=== PATIENT | male | born 1955 | race Caucasian/White ===

== ENCOUNTER → 2019-06-07 | Outpatient (CLI) | payer OTHER ==
--- NOTE | 2019-06-07 10:26 | MR ---
EXAMINATION TYPE: MR shoulder RT wo con DATE OF EXAM: 06/07/2019 COMPARISON: Plain film dated 05/26/2019 HISTORY: Right shoulder pain TECHNIQUE: Multiplanar, multisequence imaging of the right shoulder is performed without contrast. FINDINGS: Rotator Cuff: At the level of the insertion of the rotator cuff, there is partial undersurface tear p resent, increased signal is present on coronal image #15, sagittal image #23 near the insertion of th e infraspinatus tendon. Additionally within the substance of the rotator cuff there is abnormal incre ased signal, coronal image #12, sagittal image #20 suggesting tendinosis and possible intrasubstance, undersurface tear, decreased tendon thickness. Fluid signal is present in the subacromial subdeltoid bursa. Acromioclavicular Joint: Arthropathy and acromion clavicular joint causes mass effect on the musculot endinous junction of supraspinatus. Distal acromial spur is noted. Glenohumeral Joint: Intact Labrum: There is some intrasubstance signal present along the superior labrum, there may be degenerat regina change, possible SLAP lesion, coronal image 14, 16 and 17 Biceps Tendon: The long head of biceps is in normal location within bicipital groove somewhat perched centrally, there is fluid signal along the long head of biceps. Bone marrow signal: Pseudocysts are present within the humeral head. Other: Inferior glenohumeral ligament appears somewhat irregular, abnormal increased signal is noted, suspect some thickening. IMPRESSION: Undersurface tears rotator cuff, possible SLAP lesion, correlate to exclude frozen shoulder.
== END | disposition home or self-care (01) ==
LOC: RADMRIMAIN 08:23
PROVIDERS: ATTEND Orthopaedic Surgery
DX: M75.101 Unspecified rotator cuff tear or rupture of right shoulder, not specified as traumatic (principal)

== ENCOUNTER → 2019-06-24 | Outpatient (CLI) | payer OTHER ==
[2019-06-24 09:39] LABS: Potassium 4.6 mmol/L (3.5-5.1)
[2019-06-24 09:55] LABS: Basophils # (A) 0.1 k/uL (0-0.2); Basophils % (A) 1 %; Eosinophils # (A) 0.3 k/uL (0-0.7); Eosinophils % (A) 5 %; HGB 14.9 gm/dL (13.0-17.5); Lymphocytes # (A) 1.7 k/uL (1.0-4.8); Lymphocytes % (A) 31 %; MCH 31.1 pg (25.0-35.0); MCV 91.6 fL (80.0-100.0); Mean Platelet Volume 8.2; Monocytes # (A) 0.4 k/uL (0-1.0); Monocytes % (A) 7 %; Neutrophils # (A) 2.9 k/uL (1.3-7.7); Neutrophils % (A) 54 %; Platelet Count 306 k/uL (150-450); RDW 13.4 % (11.5-15.5); WBC 5.4 k/uL (3.8-10.6)
== END | disposition home or self-care (01) ==
LOC: LABPAT 08:50
PROVIDERS: ATTEND Orthopaedic Surgery
DX: Z01.812 Encounter for preprocedural laboratory examination (principal); Z01.818 Encounter for other preprocedural examination; M75.41 Impingement syndrome of right shoulder
CPT/HCPCS: 36415; 80051; 85025

== ENCOUNTER → 2019-07-17 | Day surgery (SDC) | payer OTHER ==
[2019-07-12 15:28] VITALS: BMI 28.7
--- NOTE | 2019-07-16 15:56 | HP ---
HISTORY AND PHYSICAL REASON FOR ADMISSION: Surgery 07/17/2019. HISTORY OF PRESENT ILLNESS: Arnel Castillo is a 63-year-old patient seen with progressive right shoulder pain. We discussed options for treatment. He elected to proceed with arthroscopy. Consent was obtained. PAST MEDICAL HISTORY: Atrial fibrillation. PAST SURGICAL HISTORY: None. DAILY MEDICATIONS: None. ALLERGIES: None. SOCIAL HISTORY: Denies tobacco use. PHYSICAL EXAMINATION: Evaluation of the right shoulder, flexion 110, abduction 70, external rotation 30 with pain and weakness. Tenderness along the anterior lateral acromion rotator cuff insertion site. Impingement sign is positive at 90 degrees. Drop-arm sign is positive. His distal neurovascular exam is intact. RADIOGRAPHS: Radiographs of the right shoulder revealed a type 2 anterior acromion acromioclavicular joint osteoarthritis and cystic changes of the greater tuberosity. An MRI of the right shoulder revealed rotator cuff tendon tear and labral tear. IMPRESSION: 1. Right shoulder impingement with rotator cuff and labral tear. 2. Right shoulder acromioclavicular osteoarthritis. 3. Adhesive capsulitis. 4. Atrial fibrillation. PLAN: Right shoulder arthroscopy with subacromial decompression, arthroscopic rotator cuff repair, Tash procedure, lysis of adhesions and debridement. Surgery scheduled for 07/17/2019. MMODL / IJN: [id number] /
[~2019-07-17] MED LIST: DEXAMETHASONE SOD PHOSPHATE 10 MG/ML 1 ML VIAL IV ONE; HYDROcodone/APAP 7.5-325MG 1 EACH TAB PO ONE; HYDROmorphone 0.5 MG/0.5 ML SYRINGE IVP PRN; LACTATED RINGERS 1,000 ML IV ONE; LACTATED RINGERS 1,000 ML IV SCH; LIDOCAINE 1% (10MG/ML) FOR IV START INTRADERMA ONE; LIDOCAINE 1% INJ 10MG/ML (20 ML MDV) ONE; MIDAZOLAM 2 MG/2 ML VIAL IV PRN; MIDAZOLAM 2 MG/2 ML VIAL ONE; ONDANSETRON 4 MG/2 ML VIAL IVP ONE; PROPOFOL 10 MG/ML 20 ML VIAL IV ONE; ROCURONIUM BROMIDE 10 MG/ML 5 ML VIAL IV ONE; ROPIVACAINE 0.2%-NS ON-Q PUMP 1,090 MG, EMPTY PAIN BALL 1 EACH MISCELLANE PRN
--- NOTE | 2019-07-17 12:44 | P.ANPRN ---
Procedure Note - Anesthesia - Nerve Block Performed Right Interscalene Infusion Time Out Performed: Yes Date of Procedure: 07/17/19 Procedure Start Time: 11:30 Procedure Stop Time: :42 Location of Patient: PreOp Indication: Acute Post-Operative Pain, Requested by Surgeon Sedation Type: Sedate with meaningful contact maintained Preparation: Sterile Prep, Sterile Dressing Position: Sitting Catheter: Indwelling Needle Types: Optisense Needle Gauge: 18 Ultrasound used to visualize needle placement: Yes Ultrasound used to observe medication spread: Yes Injectate: 0.5% Ropivacaine (see comment for volume) Blood Aspirated: No Pain Paresthesia on Injection Noted: No Resistance on Injection: Normal Image Stored and Saved: Yes Events: Uneventful and Well Tolerated
--- NOTE | 2019-07-17 14:43 | P.OP ---
Date of Procedure: 07/17/19 Preoperative Diagnosis: Right shoulder impingement Postoperative Diagnosis: 1. Right shoulder rotator cuff tear 2. Right shoulder impingement 3. Right shoulder acromioclavicular joint osteoarthritis 4. Right shoulder partial long head biceps tendon tear 5. Right shoulder superficial labral tear 6. 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 Right shoulder arthroscopic rotator cuff repair 2. Right shoulder arthroscopic subacromial decompression 3. Right shoulder arthroscopic Tash procedure 4. Right shoulder arthroscopic biceps tenotomy 5. Right shoulder arthroscopic labral tear 6. Right shoulder arthroscopic chondroplasty humeral head Implants: 1Arthrex 4.75 swivel lock anchor Anesthesia: GETA, regional (Interscalene block) Surgeon: Carson Dawson Print Color Operator #1: Kenny Brasher Estimated Blood Loss (ml): 10 Pathology: none sent Condition: stable Disposition: PACU Indications for Procedure: 63-year-old patient seen with progressive right shoulder pain. After treatment options were discussed, he elected to proceed with arthroscopy. Operative Findings: see description of procedure Description of Procedure: Patient underwent an interscalene block by department of anesthesia for postoperative pain management. The patient was then taken to the operative suite. The patient underwent a general anesthetic by the department of anesthesia. The patient was placed into a lateral position and secured. There was appropriate padding of the bony prominence. Right shoulder was then prepped and draped in normal sterile orthopedic fashion. We placed the extremity in 10 pounds of longitudinal traction. A posterior incision was now made for a posterior working portal site. The trocar and cannula were inserted into the glenohumeral joint. Arthroscopy was initiated. Spinal needle was now inserted anteriorly, to ascertain the anterior working portal site. An incision was now made in that area, a trocar was inserted followed by a probe. There was superficial tearing of the superior and anterior labrum. There were grade 3/4 chondromalacia changes of the central portion humeral head with peripheral o steochondral flap tears present. There was hyperemia partial tearing long head biceps tendon. There was an obvious rotator cuff tear along the posterior aspect of the supraspinatus visualized from glenohumeral joint. I performed an arthroscopic biceps tenotomy. I performed a chondroplasty of the humeral head. I debrided the superficial labral tears down to stable osteochondral tissue. The residual osteochondral tissue was found to be stable. We again noted a central area of the humeral head with grade 3/4 chondromalacia measuring about 2 cm in diameter. The residual labrum was stable. Instruments now removed from glenohumeral joint. Utilizing the posterior working portal site, the trocar and cannula were inserted into the subacromial space. Arthroscopy initiated. I made an incision 2 fingerbreadths lateral to the acromion. I introduced my trocar followed by my ArthroCare ablator. I now began ablating thick subacromial bursal tissue, which exposed the undersurface of the anterior acromion. There was diminished subacromial space. There was a very prominent anterior acromion. A motorized bur was introduced and a subacromial decompression was performed. I also excised some osteophytes off the inferior aspect of the distal clavicle. The AC joint was visualized and noted to be fairly arthritic. The motorized bur was introduced in the anterior portal site and a Tash procedure was performed without difficulty, decompressing the AC joint nicely. I turned my attention to the rotator cuff. There was a 1.5 cm tear posterior aspect distal supraspinatus. I debrided the margins getting down to stable tendon tissue. I abraded the footprint with a motorized bur. I passed 3 everted mattress suture through good bites of rotator cuff tendon. I punched the hole in the area the footprint for insertion of anchor. All 6 suture limbs were passed through a 4.75 Arthrex swivel lock anchor. The eyelet of the anchor was now placed into pre-punch hole. I held it in position while the David SWAN tensioned all the sutures and then deployed the anchor. There was good purchase of the anchor. We had good compression of the tendon along the entire footprint. All residual suture limbs were clipped. I injected 1 mL Renyte intra-articular. Instruments now removed from the portal sites. All portal sites were approximated with nylon suture. Sterile dressings were applied followed by a shoulder immobilizer. Kenny SWAN assisted in this complex case. The patient was awakened, transferred to a bed, and taken to recovery in stable condition.
[2019-07-17 14:52] VITALS: TEMP 96.8
[2019-07-17 16:36] VITALS: BP 127/89; PULSE 69; RESP 18
== END | disposition home or self-care (01) ==
LOC: OR 10:41
PROVIDERS: ATTEND Orthopaedic Surgery
DX: M75.101 Unspecified rotator cuff tear or rupture of right shoulder, not specified as traumatic (principal); M19.011 Primary osteoarthritis, right shoulder; M75.41 Impingement syndrome of right shoulder; M75.01 Adhesive capsulitis of right shoulder; M24.111 Other articular cartilage disorders, right shoulder; M94.211 Chondromalacia, right shoulder; M75.21 Bicipital tendinitis, right shoulder; I48.91 Unspecified atrial fibrillation
CPT/HCPCS: 64415; 76942; 29824; 29826; 29827; C1713; Q4212; J2250; J1100; J0690; J2405; J2001; J2704; J1170; J2795

== ENCOUNTER → 2019-11-29 | Outpatient (CLI) | payer OTHER ==
[2019-11-29 12:52] LABS: HCT 44.9 % (39.0-53.0); HGB 15.4 gm/dL (13.0-17.5); MCH 31.4 pg (25.0-35.0); MCHC 34.3 g/dL (31.0-37.0); MCV 91.5 fL (80.0-100.0); Mean Platelet Volume 8.1; Platelet Count 293 k/uL (150-450); RDW 13.6 % (11.5-15.5); WBC 5.3 k/uL (3.8-10.6)
[2019-11-29 18:43] LABS: African American GFR (CKD) 80.6 (60.0-200.0); Albumin 4.5 g/dL (3.80-4.90); Albumin/Globulin Ratio 2.05 (1.60-3.17); Anion Gap 7.4 mmol/L (4.00-12.00); BUN/Creat Ratio 16.36 Ratio (12.00-20.00); Calcium 9.4 mg/dL (8.7-10.3); Carbon Dioxide 25.6 mmol/L (21.6-31.8); Globulin 2.2 g/dL (1.6-3.3); Non-African American GFR(CKD) 69.6 (60.0-200.0); Potassium 4.6 mmol/L (3.5-5.5); Total Bilirubin 0.6 mg/dL (0.2-1.2); Total Protein 6.7 g/dL (6.2-8.2)
== END | disposition home or self-care (01) ==
LOC: LABWHC1 11:37
PROVIDERS: ATTEND Physician Assistant
DX: G72.9 Myopathy, unspecified (principal)
CPT/HCPCS: 36415; 80053; 82085; 82550; 84439; 84443; 84481; 85027

== ENCOUNTER → 2020-04-02 | Outpatient (CLI) | payer OTHER ==
[~2020-04-02] MED LIST changes: -DEXAMETHASONE SOD PHOSPHATE 10 MG/ML 1 ML VIAL IV ONE; -HYDROcodone/APAP 7.5-325MG 1 EACH TAB PO ONE; -HYDROmorphone 0.5 MG/0.5 ML SYRINGE IVP PRN; +IODINE/POTASS IOD (LUGOLS) BOTTLE TOPICAL ONE; -LACTATED RINGERS 1,000 ML IV ONE; -LACTATED RINGERS 1,000 ML IV SCH; -LIDOCAINE 1% (10MG/ML) FOR IV START INTRADERMA ONE; -LIDOCAINE 1% INJ 10MG/ML (20 ML MDV) ONE; -MIDAZOLAM 2 MG/2 ML VIAL IV PRN; -MIDAZOLAM 2 MG/2 ML VIAL ONE; -ONDANSETRON 4 MG/2 ML VIAL IVP ONE; -PROPOFOL 10 MG/ML 20 ML VIAL IV ONE; -ROCURONIUM BROMIDE 10 MG/ML 5 ML VIAL IV ONE; -ROPIVACAINE 0.2%-NS ON-Q PUMP 1,090 MG, EMPTY PAIN BALL 1 EACH MISCELLANE PRN
--- NOTE | 2020-04-05 09:52 | NM ---
EXAMINATION TYPE: NM DatScan Brain SPECT DATE OF EXAM: 04/02/2020 COMPARISON: NONE HISTORY: Tremor. TECHNIQUE: 10 drops of Lugol's solution was administered 1 hour prior to injection as a thyroid bloc tonya agent. After the administration of 4.71 mCi I-123 Ioflupane DaTscan. Images obtained 3 hours p ost injection. SPECT images of the brain were acquired with axial and coronal reconstructions. FINDINGS: The DaTSCAN demonstrates normal uptake of tracer throughout the striata. Consequently there is no evidence of loss of the pre-synaptic dopaminergic terminals on this investigation. IMPRESSION: This normal appearance is against a diagnosis of idiopathic Parkinson?s disease (PD) or a Parkinsonian syndrome (PS) and is seen in healthy individuals and also patients with essential tremor (ET), drug induced parkinsonism, and vascular pseudo-parkinsonism.
== END | disposition home or self-care (01) ==
LOC: RADNMMAIN 11:01
PROVIDERS: ATTEND Psychiatry & Neurology Neurology
DX: G25.0 Essential tremor (principal)
CPT/HCPCS: 78803; A9584

== ENCOUNTER 2020-09-12 12:52 | Inpatient (IN) | payer OTHER, MEDICARE ==
[2020-09-12] MEDS ORDERED: HEPARIN SODIUM,PORCINE 10,000 UNIT/ML 1 ML VIAL IV ONE (13:44)
--- NOTE | 2020-09-12 14:00 | ED ---
General Adult HPI - General Chief complaint: Recheck/Abnormal Lab/Rx Stated complaint: L Lung Blood Clot Time Seen by Provider: 09/12/20 12:55 Source: patient, RN notes reviewed, old records reviewed Mode of arrival: ambulatory Limitations: no limitations - History of Present Illness Initial comments: This is a 64-year-old male who presents to the emergency room because he has pulmonary embolisms. Patient states he was down at never significantly getting a CAT scan of his aorta and his extremities and he was called to state that when they saw the base of his lungs he had clots bilaterally in the basal aspect of his lungs. Patient denies any shortness of breath chest pain or palpitations. Patient denies any fever chills. Patient states he has not had any symptoms of fatigue or weakness other than the chronic weakness he's had on his right side which is why he was at [facility] to begin with. Patient denies any headache patient denies lightheadedness or dizziness. Patient denies any previous blood clots. - Related Data Home Medications Medication Instructions Recorded Confirmed Loratadine [Claritin] 10 mg PO DAILY 09/12/20 09/12/20 Multivitamins, Thera Liquid 5 ml PO DAILY 09/12/20 09/12/20 [Theragran Liquid (formulary)] Allergies Allergy/AdvReac Type Severity Reaction Status Date / Time mold Allergy Dyspnea Verified 09/12/20 15:12 DUST Allergy Dyspnea Uncoded 09/12/20 15:12 Review of Systems ROS Statement: Those systems with pertinent positive or pertinent negative responses have been documented in the HPI. ROS Other: All systems not noted in ROS Statement are negative. Past Medical History Past Medical History: Atrial Fibrillation Additional Past Medical History / Comment(s): HX A-FIB W/ ABLATION (APPROX 10 YRS AGO), SEES CHIROPRACTOR FOR BACK .,. RIGHT SHOULDER PAIN. History of Any Multi-Drug Resistant Organisms: None Reported Past Surgical History: Cardiac Ablation Past Anesthesia/Blood Transfusion Reactions: No Reported Reaction Past Psychological History: No Psychological Hx Reported Smoking Status: Never smoker Past Alcohol Use History: Occasional Past Drug Use History: None Reported - Past Family History Father Family Medical History: Cancer Additional Family Medical History / Comment(s): CANCER LYMPH NODES. General Exam - General Exam Comments Initial Comments: GENERAL: Patient is well-developed and well-nourished. Patient is nontoxic and well-hyd rated and is in no acute distress. ENT: Neck is soft and supple. No significant lymphadenopathy is noted. Oropharynx is clear. Moist mucous membranes. Neck has full range of motion without elicit ing any pain. EYES: The sclera were anicteric and conjunctiva were pink and moist. Extraocular m ovements were intact and pupils were equal round and reactive to light. Eyelids were unremarkable. PULMONARY: Unlabored respirations. Good breath sounds bilaterally. No audible rales rhonchi or wheezing was noted. CARDIOVASCULAR: There is a regular rate and rhythm without any murmurs gallops or rubs. ABDOMEN: Soft and nontender with normal bowel sounds. SKIN: Skin is clear with no lesions or rashes and otherwise unremarkable. NEUROLOGIC: Patient is alert and oriented x3. Cranial nerves II through XII are grossly intact. Motor and sensory are also intact. Normal speech, volume and content. Symmetrical smile. MUSCULOSKELETAL: Normal extremities with adequate strength and full range of motion. No lower extremity swelling or edema. No calf tenderness. LYMPHATICS: No significant lymphadenopathy is noted PSYCHIATRIC: Normal psychiatric evaluation. Limitations: no limitations Course Vital Signs 09/12/20 12:55 Temperature 97.5 F L Pulse Rate 69 Respiratory 18 Rate Blood Pressure 123/84 O2 Sat by Pulse 98 Oximetry Medical Decision Making - Medical Decision Making EKG shows normal sinus rhythm at 63 bpm NJ interval is on a 58 QRSs 162/426 QTC is 435 per patient's EKG shows no ST segment elevation or depression. High-dose heparin was used to treat the patient's pulmonary process. I admitted the patient. I spoke with Dr. Woodard he agreed to admit the patient admitted the patient wrote admitting orders - Lab Data Result diagrams: 09/12/20 13:49 09/12/20 13:49 Lab Results 09/12/20 09/12/20 09/12/20 Range/Units 13:49 13:49 13:49 WBC 5.8 (3.8-10.6) k/uL RBC 5.14 (4.30-5.90) m/uL Hgb 15.6 (13.0-17.5) gm/dL Hct 46.8 (39.0-53.0) % MCV 91.0 (80.0-100.0) fL MCH 30.4 (25.0-35.0) pg MCHC 33.4 (31.0-37.0) g/dL RDW 13.7 (11.5-15.5) % Plt Count 276 (150-450) k/uL MPV 8.1 Neutrophils % 58 % Lymphocytes % 30 % Monocytes % 7 % Eosinophils % 3 % Basophils % 1 % Neutrophils # 3.4 (1.3-7.7) k/uL Lymphocytes # 1.8 (1.0-4.8) k/uL Monocytes # 0.4 (0-1.0) k/uL Eosinophils # 0.2 (0-0.7) k/uL Basophils # 0.1 (0-0.2) k/uL PT 9.7 (9.0-12.0) sec INR 0.9 (<1.2) APTT 22.7 (22.0-30.0) sec D-Dimer 0.99 H (<0.60) mg/L FEU Sodium 139 (137-145) mmol/L Potassium 4.4 (3.5-5.1) mmol/L Chloride 104 (98-107) mmol/L Carbon Dioxide 27 (22-30) mmol/L Anion Gap 8 mmol/L BUN 17 (9-20) mg/dL Creatinine 1.14 (0.66-1.25) mg/dL Est GFR (CKD-EPI)AfAm 78 (>60 ml/min/1.73 sqM) Est GFR (CKD-EPI)NonAf 67 (>60 ml/min/1.73 sqM) Glucose 89 (74-99) mg/dL Calcium 9.7 (8.4-10.2) mg/dL Magnesium 2.4 H (1.6-2.3) mg/dL Total Bilirubin 0.6 (0.2-1.3) mg/dL AST 31 (17-59) U/L ALT 18 (4-49) U/L Alkaline Phosphatase 66 (38-126) U/L Total Protein 7.4 (6.3-8.2) g/dL Albumin 4.6 (3.5-5.0) g/dL Coronavirus (PCR) (Not Detectd) 09/12/20 Range/Units 14:38 WBC (3.8-10.6) k/uL RBC (4.30-5.90) m/uL Hgb (13.0-17.5) gm/dL Hct (39.0-53.0) % MCV (80.0-100.0) fL MCH (25.0-35.0) pg MCHC (31.0-37.0) g/dL RDW (11.5-15.5) % Plt Count (150-450) k/uL MPV Neutrophils % % Lymphocytes % % Monocytes % % Eosinophils % % Basophils % % Neutrophils # (1.3-7.7) k/uL Lymphocytes # (1.0-4.8) k/uL Monocytes # (0-1.0) k/uL Eosinophils # (0-0.7) k/uL Basophils # (0-0.2) k/uL PT (9.0-12.0) sec INR (<1.2) APTT (22.0-30.0) sec D-Dimer (<0.60) mg/L FEU Sodium (137-145) mmol/L Potassium (3.5-5.1) mmol/L Chloride (98-107) mmol/L Carbon Dioxide (22-30) mmol/L Anion Gap mmol/L BUN (9-20) mg/dL Creatinine (0.66-1.25) mg/dL Est GFR (CKD-EPI)AfAm (>60 ml/min/1.73 sqM) Est GFR (CKD-EPI)NonAf (>60 ml/min/1.73 sqM) Glucose (74-99) mg/dL Calcium (8.4-10.2) mg/dL Magnesium (1.6-2.3) mg/dL Total Bilirubin (0.2-1.3) mg/dL AST (17-59) U/L ALT (4-49) U/L Alkaline Phosphatase (38-126) U/L Total Protein (6.3-8.2) g/dL Albumin (3.5-5.0) g/dL Coronavirus (PCR) Not Detected (Not Detectd) Critical Care Time Critical Care Time: Yes Total Critical Care Time: 35 Disposition Clinical Impression: Pulmonary embolism Disposition: ADMITTED IP TO THIS [facility] Referrals: Hunter Richmond, PAC [Primary Care Provider] - 1-2 days Time of Disposition: 16:06
[2020-09-12 14:11] LABS: Basophils % (A) 1 %; Eosinophils % (A) 3 %; HCT 46.8 % (39.0-53.0); HGB 15.6 gm/dL (13.0-17.5); Lymphocytes # (A) 1.8 k/uL (1.0-4.8); Lymphocytes % (A) 30 %; MCH 30.4 pg (25.0-35.0); MCHC 33.4 g/dL (31.0-37.0); Mean Platelet Volume 8.1; Monocytes % (A) 7 %; Neutrophils # (A) 3.4 k/uL (1.3-7.7); Neutrophils % (A) 58 %; Platelet Count 276 k/uL (150-450); RBC 5.14 m/uL (4.30-5.90); RDW 13.7 % (11.5-15.5); WBC 5.8 k/uL (3.8-10.6)
[2020-09-12 14:12] LABS: Basophils # (A) 0.1 k/uL (0-0.2); Eosinophils # (A) 0.2 k/uL (0-0.7); Monocytes # (A) 0.4 k/uL (0-1.0)
[2020-09-12 14:27] LABS: INR 0.9 (<1.2); Partial Thromboplastin Time 22.7 sec (22.0-30.0); Prothrombin Time 9.7 sec (9.0-12.0)
[2020-09-12 14:31] LABS: Albumin 4.6 g/dL (3.5-5.0); Calcium 9.7 mg/dL (8.4-10.2); Magnesium 2.4 mg/dL (1.6-2.3); Potassium 4.4 mmol/L (3.5-5.1); Total Bilirubin 0.6 mg/dL (0.2-1.3); Total Protein 7.4 g/dL (6.3-8.2)
[2020-09-12] MEDS: HEPARIN SOD,PORK IN 0.45% NACL 25,000 UNIT in 0.45% NACL 1 250ML.BAG IV SCH (14:32)
[2020-09-12 14:43] LABS: D-Dimer 0.99 mg/L FEU (<0.60)
[2020-09-12] MEDS ORDERED: SODIUM CHLORIDE 0.9% 1,000 ML IV ONE (16:06)
--- NOTE | 2020-09-12 22:13 | P.HPIM ---
History of Present Illness H&P Date: 09/12/20 Chief Complaint: Newly diagnosed with PE Mr. Pedersen is a 64-year-old male with a past medical history of atrial fibrillation status post ablation approximately 10 years ago, coming into the emergency department because he was diagnosed with pulmonary embolism at [facility]. Patient states that he had a CT angio of his aorta and his extremities earlier today, later he was called and told that he has blood clots in the bases of his lungs on both sides and was advised to go to the emergency. Patient denies having any chest pain or palpitations. He denies having any difficulty in breathing or exertional dyspnea. He denies having any fevers chills or rigors. Patient denies having any history of recent travel. No complaints of lower extremity edema. Patient states that he is undergoing evaluation by neurology, PCP and cardiology for chronic weakness of his right lower extremity for the past 7 years. 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 Patient showed me a video of him having difficulty with his right lower extremity after walking for few minutes. On review of systems patient denies having any fevers chills or rigors. No cough or difficulty in breathing. No chest pain or palpitations. No abdominal pain nausea vomiting or diarrhea. No dysuria or hematuria. Patient denies having any slurring of speech. No loss of consciousness or syncopal episodes. No weakness of his extremities. Patient denies having any family history of malignancies. He denies having any family history of clotting or bleeding disorders. In the ER patient had an EKG done showing normal sinus rhythm and he has blood work done showing white count of 5.8, hemoglobin of 10.6, platelets 276. Potassium 4.4, sodium 139, chloride 104, bicarb 27, BUN 17, creatinine 1.14 coronavirus negative.Patient has been started on IV heparin drip and admitted for further management. Patient's vitals heart rate 50s to 60s, respiratory rate 18, blood pressure 133 x 84, saturating at 98% on room air. Review of Systems REVIEW OF SYSTEMS: CONSTITUTIONAL: Denies having any fevers chills or rigors. HEENT: No recent visual problems or hearing problems. Denied any sore throat. CARDIOVASCULAR: No chest pain or palpitations PULMONARY: No cough or difficulty in breathing. GASTROINTESTINAL: No abdominal pain or constipation. No abdominal pain nausea vomiting or diarrhea NEUROLOGICAL: No headaches, no weakness. HEMATOLOGICAL: Denies any bleeding or petechiae. GENITOURINARY: Denies any burning micturition, frequency, or urgency. MUSCULOSKELETAL/RHEUMATOLOGICAL: Denies any joint pain, swelling ENDOCRINE: Denies any polyuria or polydipsia. The rest of the 14-point review of systems is negative. Past Medical History Past Medical History: Atrial Fibrillation Additional Past Medical History / Comment(s): HX A-FIB W/ ABLATION (APPROX 10 YRS AGO), SEES CHIROPRACTOR FOR BACK .,. RIGHT SHOULDER PAIN. History of Any Multi-Drug Resistant Organisms: None Reported Past Surgical History: Cardiac Ablation Past Anesthesia/Blood Transfusion Reactions: No Reported Reaction Past Psychological History: No Psychological Hx Reported Smoking Status: Never smoker Past Alcohol Use History: Occasional Past Drug Use History: None Reported - Past Family History Father Family Medical History: Cancer Additional Family Medical History / Comment(s): CANCER LYMPH NODES. Medications and Allergies Home Medications Medication Instructions Recorded Confirmed Type Loratadine [Claritin] 10 mg PO DAILY 09/12/20 09/12/20 History Multivitamins, Thera Liquid 5 ml PO DAILY 09/12/20 09/12/20 History [Theragran Liquid (formulary)] Allergies Allergy/AdvReac Type Severity Reaction Status Date / Time mold Allergy Dyspnea Verified 09/12/20 15:12 DUST Allergy Dyspnea Uncoded 09/12/20 15:12 Physical Exam Vitals: Vital Signs Temp Pulse Resp BP Pulse Ox 09/12/20 12:55 97.5 F L 69 18 123/84 98 Intake and Output 09/12/20 09/12/20 09/12/20 06:59 14:59 22:59 Other: Weight 90.718 kg PHYSICAL EXAMINATION: GENERAL: The patient is alert and oriented x3, not in any acute distress. HEENT: Pupils are round and equally reacting to light. EOMI. No scleral icterus. No pallor. CARDIOVASCULAR: S1 and S2 present. PULMONARY: Bilateral breath sounds are positive. No crackles or wheeze. ABDOMEN: Abdomen is soft. Nontender. Nondistended. Normal bowel sounds. MUSCULOSKELETAL: No joint swelling or deformity. EXTREMITIES: No cyanosis, clubbing. No pedal edema NEUROLOGICAL: Gross neurological examination did not reveal any focal deficits. SKIN: No rashes. Results CBC & Chem 7: 09/12/20 13:49 09/12/20 13:49 Labs: Abnormal Lab Results - Last 24 Hours (Table) 09/12/20 09/12/20 Range/Units 13:49 13:49 D-Dimer 0.99 H (<0.60) mg/L FEU Magnesium 2.4 H (1.6-2.3) mg/dL Assessment and Plan Assessment: ASSESSMENT Newly diagnosed with bilateral PE History of atrial fibrillation status post ablation 10 years ago Right lower extremity weakness PLAN: Patient lower extremity CT angio and was diagnosed with bilateral PEs at [facility]. He has been started on IV heparin. Will obtain the records from [facility]. He has ongoing work-up being done by his PCP, neurologist for right lower extremity weakness. Patient has newly diagnosed PE, that is unprovoked so we held anticoagulation for at least 3 to 6 months. Patient might need CT angio of the chest to look for the extent of the pulmonary embolism. We will repeat a.m. labs, depending upon the creatinine will order a CT angio of the chest. Continue with IV fluids at 75 cc/h. Will obtain hematology consult. Further recommendations to follow depending on the progress of the patient. The treatment plan was discussed with him at bedside in detail.
[2020-09-13 06:31] LABS: Basophils # (A) 0.1 k/uL (0-0.2); Basophils % (A) 1 %; Eosinophils # (A) 0.2 k/uL (0-0.7); Eosinophils % (A) 4 %; HCT 43.9 % (39.0-53.0); HGB 14.5 gm/dL (13.0-17.5); Lymphocytes # (A) 2.1 k/uL (1.0-4.8); Lymphocytes % (A) 36 %; MCH 29.8 pg (25.0-35.0); MCHC 32.9 g/dL (31.0-37.0); MCV 90.6 fL (80.0-100.0); Monocytes # (A) 0.5 k/uL (0-1.0); Monocytes % (A) 8 %; Neutrophils # (A) 2.8 k/uL (1.3-7.7); Neutrophils % (A) 49 %; Platelet Count 262 k/uL (150-450); RBC 4.85 m/uL (4.30-5.90); RDW 13.5 % (11.5-15.5); WBC 5.7 k/uL (3.8-10.6)
[2020-09-13 08:15] LABS: Calcium 9.1 mg/dL (8.4-10.2); Potassium 4.4 mmol/L (3.5-5.1)
[2020-09-13] MEDS: LORATADINE 10 MG TAB PO SCH (08:33)
[2020-09-13] MEDS: MULTIVITAMINS, THERA 1 EACH TAB PO SCH (08:33)
--- NOTE | 2020-09-13 12:55 | US ---
EXAMINATION TYPE: US venous doppler duplex LE DATE OF EXAM: 09/13/2020 12:44 PM COMPARISON: NONE CLINICAL HISTORY: PE. Pe's , not symptomatic SIDE PERFORMED: Bilateral TECHNIQUE: The lower extremity deep venous system is examined utilizing real time linear array sonog lorin with graded compression, doppler sonography and color-flow sonography. VESSELS IMAGED: Common Femoral Vein Deep Femoral Vein Greater Saphenous Vein * Femoral Vein Popliteal Vein Small Saphenous Vein * Proximal Calf Veins (* superficial vessels) Right Leg: Negative for DVT Left Leg: Negative for DVT IMPRESSION: Grayscale, color doppler, spectral doppler imaging performed of the deep veins of the lo wer extremities. There is normal flow, compressibility, vascular waveforms.
--- NOTE | 2020-09-13 13:43 | CT ---
EXAMINATION TYPE: CT angio chest DATE OF EXAM: 09/13/2020 COMPARISON: None HISTORY: Abnormal CT from outside facility. CT DLP: 443.9 mGycm CONTRAST: CT chest with contrast and 3D reconstruction with MIP imaging is performed with IV Contrast, patient injected with 80 mL of Isovue 370. Contrast-enhanced CT of the chest was performed through the course of the pulmonary arteries with juve g and mediastinal window settings submitted. 3D reconstruction with MIP imaging was also performed. PULMONARY ARTERIES: Filling defects are noted within the distal right main pulmonary artery extending into right lower lobe second and third order branches. Filling defect is also noted within a right u pper lobe second order branch. Tiny filling defect left lower lobe third order branch. No evidence fo r saddle embolism. LUNGS: The lungs are clear and free of infiltrate. No evidence for atelectasis. Nonspecific left lowe r lobe pulmonary nodule measures 9.2 cm. Appropriate follow-up in 3 months is advised and/or PET/CT. No pleural effusion. MEDIASTINUM: Thoracic aorta is of normal caliber,however, evaluation is limited given timing of the contrast bolus. If there is concern for thoracic aortic pathology consider CHRISTINA. Correlate clinicall y . The heart is not enlarged. No evidence for mediastinal mass. No mediastinal lymph nodes greater than 1cm. HILAR STRUCTURES: No evidence for mass. No hilar lymph nodes greater than 1 cm. UPPER ABDOMEN: No significant abnormality is seen. IMPRESSION: 1. Findings compatible with pulmonary embolism. 2. Nonspecific left lower lobe pulmonary nodule measures 9.2 cm. Appropriate follow-up in 3 months i s advised and/or PET/CT.
[2020-09-13] MEDS ORDERED: IOPAMIDOL CONTRAST (ORAL USE) VIAL PO PRN (15:46)
--- NOTE | 2020-09-13 15:49 | P.PN ---
Subjective Progress Note Date: 09/13/20 Principal diagnosis: Pulmonary embolism bilateral Mr. Pedersen is a 64-year-old male with a past medical history of atrial fibrillation status post ablation approximately 10 years ago, coming into the emergency department because he was diagnosed with pulmonary embolism at [facility]. Patient states that he had a CT angio of his aorta and his extremities earlier today, later he was called and told that he has blood clots in the bases of his lungs on both sides and was advised to go to the emergency. Patient denies having any chest pain or palpitations. He denies having any difficulty in breathing or exertional dyspnea. He denies having any fevers chills or rigors. Patient denies having any history of recent travel. No complaints of lower extremity edema. Patient states that he is undergoing evaluation by neurology, PCP and cardiology for chronic weakness of his right lower extremity for the past 7 years. Patient states that he used to run marathon in the past but for the past few years after running one fourth of a mile he has fatigue in his right lower extremity and has weakness. Patient showed me a video of him having difficulty with his right lower extremity after walking for few minutes. On review of systems patient denies having any fevers chills or rigors. No cough or difficulty in breathing. No chest pain or palpitations. No abdominal pain nausea vomiting or diarrhea. No dysuria or hematuria. Patient denies having any slurring of speech. No loss of consciousness or syncopal episodes. No weakness of his extremities. Patient denies having any family history of malignancies. He denies having any family history of clotting or bleeding disorders. In the ER patient had an EKG done showing normal sinus rhythm and he has blood work done showing white count of 5.8, hemoglobin of 10.6, platelets 276. Potassium 4.4, sodium 139, chloride 104, bicarb 27, BUN 17, creatinine 1.14 coronavirus negative.Patient has been started on IV heparin drip and admitted for further management. Patient's vitals heart rate 50s to 60s, respiratory rate 18, blood pressure 133 x 84, saturating at 98% on room air. On 09/13/2020- patient was seen and examined at bedside. He states that he is very eager to go home. Patient denies having any active complaints. He does not have any chest pain or palpitations. No cough or difficulty in breathing. No abdominal pain nausea vomiting or diarrhea. No dysuria or hematuria. On reviewing his vitals his temperature is 98.6, heart rate 64, respiratory 16, blood pressure 126 was 79, saturating at 99% on room air. On reviewing labs, white count of 5.7, hemoglobin 14.5, platelets 262. Sodium 138, potassium 4.4, chloride 107, bicarb 26, BUN 15, creatinine 1.16. Active Medications Heparin Sodium/Sodium Chloride (25,000 unit/ Sodium Chloride) 250 mls @ 16.329 mls/hr IV .[id number] DOMO; Protocol Last Titration: 09/13/20 08:28 Dose: 12.8 units/kg/hr, 11.608 mls/hr Documented by: Loratadine (Loratadine 10 Mg Tab) 10 mg PO DAILY [facility] Last Admin: 09/13/20 08:33 Dose: 10 mg Documented by: Multivitamins (Multivitamins, Thera 1 Each Tab) 1 each PO DAILY [facility] Last Admin: 09/13/20 08:33 Dose: 1 each Documented by: Objective - Vital Signs Vital signs: Vital Signs Temp 98.2 F 09/13/20 13:30 Pulse 65 09/13/20 13:30 Resp 16 09/13/20 13:30 BP 126/79 09/13/20 13:30 Pulse Ox 99 09/13/20 13:30 Intake & Output 09/12/20 09/13/20 09/13/20 18:59 06:59 18:59 Intake Total 112.126 136.76 Balance 112.126 136.76 Weight 90.718 kg 90.718 kg Intake: Intake, IV Titration 112.126 136.76 Amount Heparin Sod,Pork in 0.45% 112.126 136.76 NaCl 25,000 unit In 0.45 % NaCl 1 250ml.bag @ 18 UNITS/KG/HR 16.329 mls/hr IV .[id number] [facility] Rx#: [id number] - Exam PHYSICAL EXAMINATION: GENERAL: The patient is alert and oriented x3, not in any acute distress. HEENT: Pupils are round and equally reacting to light. EOMI. No scleral icterus. No pallor. CARDIOVASCULAR: S1 and S2 present. PULMONARY: Bilateral breath sounds are positive. No crackles or wheeze. ABDOMEN: Abdomen is soft. Nontender. Nondistended. Normal bowel sounds. MUSCULOSKELETAL: No joint swelling or deformity. EXTREMITIES: No cyanosis, clubbing. No pedal edema NEUROLOGICAL: Gross neurological examination did not reveal any focal deficits. SKIN: No rashes. - Labs CBC & Chem 7: 09/13/20 05:59 09/13/20 05:59 Labs: Abnormal Lab Results - Last 24 Hours (Table) 09/12/20 09/13/20 Range/Units 20:16 05:59 APTT 122.1 H* 88.8 H (22.0-30.0) sec Assessment and Plan Assessment: ASSESSMENT Newly diagnosed with bilateral PE Left lower lobe pulmonary nodule measuring 9.2 cm History of atrial fibrillation status post ablation 10 years ago Right lower extremity weakness PLAN: Patient lower extremity CT angio and was diagnosed with bilateral PEs at [facility]. He has been started on IV heparin. Waiting for records from [facility]. Patient had CT angiography the chest here this morning , showing findings compatible with bilateral pulmonary embolism and also nonspecific left lower lobe pulmonary nodule measuring 9.2 cm. So will consult pulmonary Dr. Valentin. Oncology consulted as well. Further recommendations to follow depending on the progress of the patient. The treatment plan was discussed with him at bedside in detail.
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
[2020-09-13] MEDS: HEPARIN SOD,PORK IN 0.45% NACL 25,000 UNIT in 0.45% NACL 1 250ML.BAG IV SCH (17:44)
[2020-09-13 19:36] VITALS: TEMP 97.8
[2020-09-14] MEDS: HEPARIN SOD,PORK IN 0.45% NACL 25,000 UNIT in 0.45% NACL 1 250ML.BAG IV SCH ×2 (03:45→15:30)
[2020-09-14] MEDS: MULTIVITAMINS, THERA 1 EACH TAB PO SCH (08:04)
[2020-09-14] MEDS: LORATADINE 10 MG TAB PO SCH (08:04)
[2020-09-14 08:06] LABS: Basophils # (A) 0.1 k/uL (0-0.2); Basophils % (A) 1 %; Eosinophils # (A) 0.2 k/uL (0-0.7); Eosinophils % (A) 3 %; HCT 47.2 % (39.0-53.0); HGB 16.5 gm/dL (13.0-17.5); Lymphocytes # (A) 1.9 k/uL (1.0-4.8); Lymphocytes % (A) 31 %; MCH 31.3 pg (25.0-35.0); MCHC 34.9 g/dL (31.0-37.0); MCV 89.6 fL (80.0-100.0); Mean Platelet Volume 7.9; Monocytes # (A) 0.4 k/uL (0-1.0); Monocytes % (A) 6 %; Neutrophils # (A) 3.5 k/uL (1.3-7.7); Neutrophils % (A) 58 %; Platelet Count 274 k/uL (150-450); RBC 5.27 m/uL (4.30-5.90); RDW 13.1 % (11.5-15.5); WBC 6.1 k/uL (3.8-10.6)
[2020-09-14 08:58] LABS: Potassium 4.4 mmol/L (3.5-5.1)
[2020-09-14 09:00] LABS: Calcium 9.6 mg/dL (8.4-10.2); Magnesium 2.2 mg/dL (1.6-2.3); Phosphorus 3.4 mg/dL (2.5-4.5)
[2020-09-14 11:41] VITALS: BP 122/81; PULSE 58; RESP 18
[2020-09-14 12:08] LABS: Folate, Serum 12.4 ng/mL
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
[2020-09-14] MEDS ORDERED: APIXABAN 5 MG TAB PO SCH (13:15)
--- NOTE | 2020-09-14 15:30 | P.DS ---
Providers Date of admission: 09/12/20 16:07 Expected date of discharge: 09/14/20 Attending physician: Angelica Woodard Consults: 09/12/20 22:14 Consult Physician Routine Consulting Provider: John Fry Consult Reason/Comments: New onset bilateral PE Do you want consulting provider notified?: Yes 09/13/20 15:52 Consult Physician Routine Consulting Provider: Avelina Valentin Consult Reason/Comments: 9cm pulm nodule, need for AC therapy with unprovoked PE, ? biopsy rec Do you want consulting provider notified?: Yes Primary care physician: [facility] Course: HPI-Mr. Pedersen is a 64-year-old male with a past medical history of atrial fibrillation status post ablation approximately 10 years ago, coming into the emergency department because he was diagnosed with pulmonary embolism at [facility]. Patient states that he had a CT angio of his aorta and his extremities earlier today, later he was called and told that he has blood clots in the bases of his lungs on both sides and was advised to go to the emergency. Patient denies having any chest pain or palpitations. He denies having any difficulty in breathing or exertional dyspnea. He denies having any fevers chills or rigors. Patient denies having any history of recent travel. No complaints of lower extremity edema. Patient states that he is undergoing evaluation by neurology, PCP and cardiology for chronic weakness of his right lower extremity for the past 7 years. Patient states that he used to run marathon in the past but for the past few years after running one fourth of a mile he has fatigue in his right lower extremity and has weakness. Patient showed me a video of him having difficulty with his right lower extremity after walking for few minutes. On review of systems patient denies having any fevers chills or rigors. No cough or difficulty in breathing. No chest pain or palpitations. No abdominal pain nausea vomiting or diarrhea. No dysuria or hematuria. Patient denies having any slurring of speech. No loss of consciousness or syncopal episodes. No weakness of his extremities. Patient denies having any family history of malignancies. He denies having any family history of clotting or bleeding disorders. In the ER patient had an EKG done showing normal sinus rhythm and he has blood work done showing white count of 5.8, hemoglobin of 10.6, platelets 276. Potassium 4.4, sodium 139, chloride 104, bicarb 27, BUN 17, creatinine 1.14 coronavirus negative.Patient has been started on IV heparin drip and admitted for further management. Patient's vitals heart rate 50s to 60s, respiratory rate 18, blood pressure 133 x 84, saturating at 98% on room air. Hospital course- patient was started on IV heparin drip for new onset bilateral PE. He had CT angios of the chest done on 09/13/2020 showing bilateral PEs here. And he was having left lower lobe pulmonary nodule measuring about around 9 mm. bilateral lower extremity Doppler negative for DVT. Oncology was on board and following the patient. Pulmonary Dr. Valentin evaluated the patient and changed his anticoagulation developed this. He recommended that the patient get a PET scan to assess metabolic uptake of the lesion as the lesion is too small and not accessible for biopsy using conventional techniques. This was discussed in detail with the patient, he was advised to follow-up as outpatient for this pulmonary nodule. Patient states that he understands and he wrote this information on a piece of paper. So the patient is being discharged home on anticoagulation with a locus. He is also advised to follow up with [facility], neurology, as he is undergoing workup for his right lower extremity weakness. PHYSICAL EXAM Vital Signs Last 24 Hours 09/13/20 09/13/20 09/13/20 16:35 19:35 20:00 Temperature 97.9 F 97.8 F 97.8 F Pulse Rate [ 59 L 68 68 Pulse Oximetery ] Respiratory 18 18 18 Rate Blood Pressure 130/90 116/80 116/80 [Right Arm] O2 Sat by Pulse 100 98 98 Oximetry 09/14/20 09/14/20 09/14/20 00:00 01:32 03:24 Temperature Pulse Rate [ 52 L 52 L 55 L Pulse Oximetery ] Respiratory 16 16 16 Rate Blood Pressure 107/61 103/64 [Right Arm] O2 Sat by Pulse 97 97 Oximetry 09/14/20 09/14/20 08:00 11:41 Temperature 97.8 F Pulse Rate [ 63 58 L Pulse Oximetery ] Respiratory 16 18 Rate Blood Pressure 112/66 122/81 [Right Arm] O2 Sat by Pulse 98 99 Oximetry GENERAL: The patient is alert and oriented x3, not in any acute distress. HEENT: Pupils are round and equally reacting to light. EOMI. No scleral icterus. No pallor. CARDIOVASCULAR: S1 and S2 present. PULMONARY: Bilateral breath sounds are positive. No crackles or wheeze. ABDOMEN: Abdomen is soft. Nontender. Nondistended. Normal bowel sounds. MUSCULOSKELETAL: No joint swelling or deformity. EXTREMITIES: No cyanosis, clubbing. No pedal edema NEUROLOGICAL: Gross neurological examination did not reveal any focal deficits. SKIN: No rashes. DISCHARGE DIAGNOSIS Newly diagnosed bilateral PE Left lower lobe pulmonary nodule measuring 9.2 mm History of atrial fibrillation status post ablation 10 years ago Right lower extremity weakness Follow-up: Patient is advised to follow up with a as outpatient for the left lower lobe pulmonary nodule. He will will need a PET scan to assess the metabolic uptake of the lesion. As the lesion is quite small and not accessible for biopsy using conventional techniques. If PET scan is suspicious for malignancy, alternative treatments could be discussed. Oncology and pulmonary agreed for discharge. Patient is advised to follow up with [facility] for ongoing workup of his lower right lower extremity weakness. Patient states that his primary care physician is at the [facility] in [place]. So he is advised to follow-up with his PCP in 1 week. CC: Hunter Davis at [place] More than 35 minutes spent towards the discharge of the patient. Patient Condition at Discharge: Fair Plan - Discharge Summary Discharge Rx Participant: No New Discharge Prescriptions: New Apixaban [Eliquis Starter Pack (for VTE)] 0 mg PO DIRECTED 30 Days #1 pack Continue Multivitamins, Thera Liquid [Theragran Liquid (formulary)] 5 ml PO DAILY Loratadine [Claritin] 10 mg PO DAILY Discharge Medication List Loratadine [Claritin] 10 mg PO DAILY 09/12/20 [History] Multivitamins, Thera Liquid [Theragran Liquid (formulary)] 5 ml PO DAILY 09/12/20 [History] Apixaban [Eliquis Starter Pack (for VTE)] 0 mg PO DIRECTED 30 Days #1 pack 09/14/20 [Rx] Follow up Appointment(s)/Referral(s): Radha Garcias, FLORIN [Nurse Practitioner] - 1 Week (please call wednesday to make appt.) Hunter Richmond, PAC [Primary Care Provider] - 1-2 days (please call wednesday to make appt. ) Avelina Valentin MD [STAFF PHYSICIAN] - 1 Week (please call wednesday to make appt. ) Patient Instructions/Handouts: Pulmonary Embolism (DC) Discharge Disposition: HOME SELF-CARE
[2020-09-16 13:02] LABS: Free Kappa Lt Chain Qnt, Serum 1.23 mg/dL (0.33-1.94)
[2020-09-16 14:15] LABS: APTT 108 Sec(s) (<43); APTT 1:1 Mix 60 Sec(s) (<43); Dilute Russell Viper Venom 43 Sec(s) (<44); Hexagonal Phase Neutralization Negative (Negative)
[2020-09-16 14:28] LABS: Zinc, Serum 78 ug/dL (60-130)
[2020-09-17 14:07] LABS: Vitamin E (Alpha Tocopherol) 1538 ug/dL (500-1800)
[2020-09-17 17:14] LABS: Albumin 3.73 g/dL (3.80-4.90); Gamma Globulin 0.71 g/dL (0.70-1.50)
[2020-09-17 19:40] LABS: LD Isoenzymes 1 25 % (19-38); LD Isoenzymes 2 36 % (30-43); LD Isoenzymes 3 21 % (16-26); LD Isoenzymes 4 8 % (3-12); LD Isoenzymes 5 10 % (3-14); Lactacte Dehydrogenase(LD) ISO 139 U/L (120-250)
[2020-09-18 07:52] LABS: Vit B1(Thiamine) 61 ug/L (38-122)
[2020-09-18 13:37] LABS: Immunoglobulin M 98.5 mg/dL (40.0-280.0)
== END 2020-09-14 15:30 | disposition home or self-care (01) | DRG 176 ==
LOC: EC 12:52 → 4SSUR 16:07 → 3SCARD 20:35
PROVIDERS: ADMIT Internal Medicine; ATTEND Internal Medicine
DX: I26.99 Other pulmonary embolism without acute cor pulmonale (principal); I48.91 Unspecified atrial fibrillation; G89.29 Other chronic pain; M54.9 Dorsalgia, unspecified; M25.511 Pain in right shoulder; R53.1 Weakness; R91.1 Solitary pulmonary nodule; Z20.822 Contact with and (suspected) exposure to COVID-19; Z86.010 Personal history of colon polyps; Z80.7 Family history of other malignant neoplasms of lymphoid, hematopoietic and related tissues
CPT/HCPCS: 36415; 71275; 80048; 80053; 82306; 82607; 82746; 82784; 83625; 83735; 83883; 84100; 84165; 84207; 84425; 84446; 84630; 85025; 85379; 85610; 85613; 85730; 85732; 86334; 87635; 93005; 93970; 96374; 99285

== ENCOUNTER → 2020-11-01 | Outpatient (CLI) | payer OTHER, MEDICARE | END | disposition home or self-care (01) | LOC: LABWHC1 10:53 | DX: R53.1 Weakness (principal) | CPT/HCPCS: 36415; 82085; 82550 ==

== ENCOUNTER → 2020-11-15 | Outpatient (CLI) | payer OTHER, MEDICARE ==
--- NOTE | 2020-11-18 11:51 | PE ---
Nuclear medicine PET/CT HISTORY: R 91.8, solitary pulmonary nodule, initial Patient received 8.1 mCi F-18 FDG intravenously delayed scanning was performed from skull base to the mid thighs. Localization and attenuation correction CT scan was performed. Correlation to CT chest 09/13/2020. Chest and neck: Soft tissue nodule in the left lower lobe is again noted and is stable in size measur ing approximately 1 cm. There is no associated hypermetabolic uptake. There is no mediastinal, axilla ry, or hilar adenopathy. No pleural or pericardial effusion. There are coronary artery calcifications present. Some mild prominence of pulmonary artery could be indicative of underlying pulmonary artery hypertension. There is no supraclavicular or cervical adenopathy. abdomen: There is no evident adrenal mass. There is no liver mass or retroperitoneal adenopathy. No e vident ascites. No suspicious hypermetabolic uptake. Aorta shows normal caliber. Urinary bladder show s a thickened wall possibly due to lack of distention or chronic outlet obstruction, the prostate shabnam ws calcifications and is enlarged. No suspicious uptake. Osseous structures show no suspicious uptake. IMPRESSION: Stable left lower lobe lung nodule, no suspicious uptake
== END | disposition home or self-care (01) ==
LOC: RADPETMAIN 08:53
PROVIDERS: ATTEND Internal Medicine Critical Care Medicine
DX: R91.1 Solitary pulmonary nodule (principal)
CPT/HCPCS: 78815; A9552